=== PATIENT | female | born 1940 | race Caucasian/White ===

== ENCOUNTER 2020-05-07 14:58 | Outpatient (REF) | payer SELFPAY | END 2020-05-07 14:59 | disposition home or self-care (01) | LOC: HO.HAP 14:58 | PROVIDERS: Visit Provider Physician Assistant Medical | DX: Z46.1 Encounter for fitting and adjustment of hearing aid (principal) | CPT/HCPCS: V5014 ==

== ENCOUNTER 2020-08-19 08:18 | Outpatient (REF) | payer MEDICARE, SELFPAY ==
--- NOTE | 2020-08-19 11:48 | MHC.AU.P13 ---
Adult Audiological Evaluation Date of Visit: 08/19/20 Reason for Appointment: Audiological re-evaluation to monitor the status of Ms. Clarke's hearing loss. She has a known bilateral hearing loss and uses hearing aids binaurally. She denies any significant changes to her hearing or medical history. Previous Hearing Test Results: [facility] [place], 08/19/2019- Mild to moderately severe sensorineural hearing loss in the low- and mid-frequencies, rising to normal hearing in the high-frequencies. Medical History: Medical History: Thyroid Disease Hearing Instrument History- Right Ear: Sas Programmer Analyst: [employer] Model: Mobile Bridge B90-R Serial Number: [id number] Battery Size: Rechargeable Repair Warranty: 10/02/2019 Loss and Damage Warranty: 10/02/2019 Dispensed By: [facility] Hearing Instrument History- Left Ear: Sas Programmer Analyst: [employer] Model: Mobile Bridge B90-R Serial Number: [id number] Battery Size: Rechargeable Warranty: 04/23/2021 Loss and Damage Warranty: 10/02/2019 Dispensed By: [facility] Otoscopy: Right Ear: Partially occluded with cerumen Left Ear: Unremarkable Tympanometry: Right Ear: Not performed at today's visit Left Ear: Not performed at today's visit Hearing Evaluation: Transducer(s) Used: Insert Earphones, Bone Conduction Method: Conventional Audiometry Stimuli Used: Pure Tones Right Ear: Description of Hearing: Mild hearing loss at 250 Hz, sloping to a moderate sensorineural hearing loss from 500-2000 Hz, rising to a mild hearing loss at 3000 Hz, and normal hearing from 5352-9650 Hz. Left Ear: Description of Hearing: Mild hearing loss at 250 Hz, sloping to a moderate to moderately severe sensorineural hearing loss from 500-2000 Hz, rising to a mild hearing loss at 3000 Hz, normal hearing at 4096-3108 Hz, and sloping to a mild hearing loss at 8000 Hz. Speech Recognition Threshold (SRT): Method Used: Monitored Live Voice Stimuli Used: Spondee Words Right Ear: 40 dBHL Left Ear: 45 dBHL Word Discrimination: Method: Recorded Lists Word Lists Used: NU-6 Right Ear: 68% at 80 dBHL, 64% at 85 dBHL, 92% at 70 dBHL (Decrease in word understanding as volume increases suggestive of recruitment) Left Ear: 92% at 80 dBHL Comparison: Compared to the most recent evaluation: Hearing is stable. Recommendations: Audiological re-evaluation in one year. Hearing aid maintenance performed today. Recommend using Ear Wax M.D. drops to aid in earwax removal from the right ear canal. Diagnosis: Primary Diagnosis: H90.3 Bilateral Sensorineural Hearing Loss Services Performed: Comprehensive Audiological Evaluation (CPT 54270) Signature: Provider: Navi Vu, CCC-A
== END 2020-08-19 08:19 | disposition home or self-care (01) ==
LOC: HO.SH 08:18
PROVIDERS: Visit Provider Physician Assistant Medical
DX: H90.3 Sensorineural hearing loss, bilateral (principal)
CPT/HCPCS: 92557

== ENCOUNTER 2021-06-08 09:45 | Outpatient (REF) | payer SELFPAY ==
--- NOTE | 2021-06-08 10:00 | MHC.AU.P13 ---
Hearing Instrument Problem-left aid Date of Visit: 06/08/21 Right Ear: Yard Pipe Grader: Phonak Model: Audeo B90-R Serial Number: [id number] Repair Warranty: 10/02/2019 Battery Size: Rechargeable Vessel Scrapper Helper: Size 1xS Type of Dome: Large open Type of Wax Guard: Cerustop Dispensed By: [facility] Date of Fitting: Using late 's aids, which were originally fit to him on 07/11/2016. Transferred to patient on 05/06/2020 Left Ear: Yard Pipe Grader: Phonak Model: Audeo B90-R Serial Number: [id number] Repair Warranty: 04/23/2021 Loss and Damage Warranty: 10/02/2019 Battery Size: Rechargeable Vessel Scrapper Helper: 1xS Type of Dome: Large open Type of Wax Guard: Cerustop Dispensed By: [facility] Date of Fitting: Using late 's aids, which were originally fit to him on 07/11/2016. Transferred to patient on 05/06/2020 Follow-Up Summary: Patient dropped off left aid - not working. Cleaned and replaced wax guard and large open dome - now amplifying clearly. Recommendations: Recommendations: Hearing instrument follow-up or maintenance as needed. Diagnosis Code(s): Primary Diagnosis: H90.3 Bilateral Sensorineural Hearing Loss Signature: Provider: DENNIS Momin-HIS
== END 2021-06-08 09:46 | disposition home or self-care (01) ==
LOC: HO.HAP 09:45
PROVIDERS: Visit Provider Physician Assistant Medical
DX: Z46.1 Encounter for fitting and adjustment of hearing aid (principal); H90.3 Sensorineural hearing loss, bilateral
CPT/HCPCS: 99499

== ENCOUNTER 2021-11-29 10:16 | Outpatient (REF) | payer MEDICARE, SELFPAY ==
--- NOTE | 2021-11-29 16:24 | MHC.AU.AHA ---
Adult Audiological Evaluation Date of Visit: 11/29/21 Reason for Appointment: Audiological re-evaluation to determine if there has been a change in hearing sensitivity. Valeria has a known bilateral, sensorineural hearing loss and uses hearing aids binaurally. She denies any significant changes to her hearing. She noes that she had cataract surgery on her left eye, but otherwise her medical history remains unchanged. Previous Hearing Test Results: [facility] [place], 08/19/2020- In the right ear, mild sloping to moderate SNHL through 2000 Hz, rising to normal hearing 0284-4331 Hz. In the left ear, mild sloping to moderately-severe SNHL through 2000 Hz, rising to normal hearing 2484-4725 Hz, and sloping to a mild hearing loss at 8000 Hz. Medical History: Medical History: Thyroid Disease, Left cataract surgery Medication List: Not provided Hearing Instrument History- Right Ear: Observation Assistant: [employer] Model: MAZeAutoMoneyBack B90-R Serial Number: [id number] Battery Size: Rechargeable Repair Warranty: 10/02/2019 Loss and Damage Warranty: 10/02/2019 Dispensed By: [facility] Hearing Instrument History- Left Ear: Observation Assistant: [employer] Model: MAZeo B90-R Serial Number: [id number] Battery Size: Rechargeable Warranty: 04/23/2021 Loss and Damage Warranty: 10/02/2019 Dispensed By: [facility] Otoscopy: Right Ear: Occluding cerumen removed without incident with a lighted curette. Left Ear: Unremarkable Tympanometry: Tympanometry performed due to: To assess integrity of the middle ear system Right Ear: Normal Middle Ear System (Type A) Left Ear: Normal Middle Ear System (Type A) Hearing Evaluation: Transducer(s) Used: Insert Earphones, Bone Conduction Method: Conventional Audiometry Stimuli Used: Pure Tones Right Ear: Description of Hearing: Mild hearing loss at 250 Hz, sloping to a moderate sensorineural hearing loss 500-2000 Hz, then rising to a mild sensorineural hearing loss at 3000 Hz, and normal hearing 8982-8175 Hz. Left Ear: Description of Hearing: Mild hearing loss at 250 Hz, sloping to a moderate to moderately-severe sensorineural hearing loss 500-2000 Hz, then rising to a mild sensorineural hearing loss at 3000 Hz, and normal hearing 7958-5815 Hz, then sloping to a mild hearing loss at 8000 Hz. Speech Recognition Threshold (SRT): Method Used: Monitored Live Voice Stimuli Used: Spondee Words Right Ear: 30 dBHL Left Ear: 45 dBHL Word Discrimination: Method: Recorded Lists Word Lists Used: NU-6 Right Ear: 80% at 75 dBHL Left Ear: 88% at 80 dBHL Most Comfortable Level (MCL): Right Ear: 75 dBHL Left Ear: 80 dBHL Comparison: Compared to the most recent evaluation: Hearing is stable. Recommendations: Audiological re-evaluation in one year. Hearing aid maintenance performed today. Consistent, daily use of hearing aids recommended. Diagnosis: Primary Diagnosis: H90.3 Bilateral Sensorineural Hearing Loss Secondary Diagnosis: H61.21 Impacted Cerumen, Right Ear Services Performed: Comprehensive Audiological Evaluation (CPT 00284) Tympanometry (CPT 37835) Signature: Provider: Navi Vu, CCC-A
== END 2021-11-29 10:17 | disposition home or self-care (01) ==
LOC: HO.SH 10:16
PROVIDERS: Visit Provider Physician Assistant Medical
DX: Z01.118 Encounter for examination of ears and hearing with other abnormal findings (principal); H90.3 Sensorineural hearing loss, bilateral
CPT/HCPCS: 92557; 92567

== ENCOUNTER 2023-01-24 12:32 | Outpatient (REF) | payer SELFPAY | END 2023-01-24 12:33 | disposition home or self-care (01) | LOC: HO.HAP 12:32 | PROVIDERS: Visit Provider Physician Assistant Medical | DX: Z46.1 Encounter for fitting and adjustment of hearing aid (principal); H90.3 Sensorineural hearing loss, bilateral | CPT/HCPCS: 92700 ==

== ENCOUNTER 2024-02-04 07:53 | Outpatient (REF) | payer SELFPAY ==
--- NOTE | 2024-02-04 08:36 | MHC.AU.HA3 ---
Hearing Instrument Follow-Up- Binaural Date of Visit: 02/04/24 Right Ear: Khari, Model, Color, Serial Number: Phoenix Black B90-R SN [id number] Pancho Mortgage Loan Counselor Repair Warranty: 10/02/2019 Mortgage Loan Counselor Loss and Damage Warranty: 10/02/2019 [facility] Service Plan: n/a Battery Size: Rechargeable Stator Winder/Slim Tube: Size 1xS Earmold/Dome/CShell/SlimTip: Type of Wax Guard: Cerustop Dispensed By: [facility] Date of Fitting: Using late 's aids, which were originally fit to him on 07/11/2016. Transferred to patient on 05/06/2020 Left Ear: Khari, Model, Color, Serial Number: Phoenix Black B90-R SN [id number] Silver Mortgage Loan Counselor Repair Warranty: 04/23/2021 Mortgage Loan Counselor Loss and Damage Warranty: 10/02/2019 [facility] Service Plan: n/a Battery Size: Rechargeable Stator Winder/Slim Tube: 1xS Earmold/Dome/CShell/SlimTip: Type of Wax Guard: Cerustop Dispensed By: [facility] Date of Fitting: Using late 's aids, which were originally fit to him on 07/11/2016. Transferred to patient on 05/06/2020 Follow-Up Summary: Reports left aid is not working. Green in support coordinator but no sound. Found wax guard clogged. Found right wax guard rather blocked up as well. Cleaned aids. Replaced wax guards, tails, and domes. Listening check positive. Improvement reported. Recommendations: Recommendations: Hearing instrument follow-up or maintenance as needed. Diagnosis Code(s): Primary Diagnosis: H90.3 Bilateral Sensorineural Hearing Loss Signature: Provider: Haim Anderson, [facility]
== END 2024-02-04 07:54 | disposition home or self-care (01) ==
LOC: HO.HAP 07:53
PROVIDERS: Visit Provider Physician Assistant Medical
DX: Z46.1 Encounter for fitting and adjustment of hearing aid (principal); H90.3 Sensorineural hearing loss, bilateral
CPT/HCPCS: 92593

== ENCOUNTER 2024-06-24 09:34 | Outpatient (REF) | payer SELFPAY ==
--- NOTE | 2024-06-25 09:22 | MHC.AU.HA3 ---
Hearing Instrument Follow-Up- Binaural Date of Visit: 06/24/24 Right Ear: Make, Model, Color, Serial Number: Phoenix Black B90-R SN [id number] Silver Tool Design Drafter Repair Warranty: 10/02/2019 Tool Design Drafter Loss and Damage Warranty: 10/02/2019 [facility] Service Plan: Battery Size: Rechargeable Horticultural Farmer/Slim Tube: Size 1xS Earmold/Dome/CShell/SlimTip: Type of Wax Guard: Cerustop Dispensed By: [facility] Date of Fitting: Using late 's aids, which were originally fit to him on 07/11/2016. Transferred to patient on 05/06/2020 Left Ear: Khari, Model, Color, Serial Number: Phoenix Black B90-R SN [id number] Silver Tool Design Drafter Repair Warranty: 04/23/2021 Tool Design Drafter Loss and Damage Warranty: 10/02/2019 [facility] Service Plan: Battery Size: Rechargeable Horticultural Farmer/Slim Tube: 1xS Earmold/Dome/CShell/SlimTip: Type of Wax Guard: Cerustop Dispensed By: [facility] Date of Fitting: Using late 's aids, which were originally fit to him on 07/11/2016. Transferred to patient on 05/06/2020 Follow-Up Summary: Right aid dropped off intermittent . Found wax guard clogged. Cleaned aid; replaced dome, wax guard, and tail. Listening check positive. Recommendations: Recommendations: Hearing instrument follow-up or maintenance as needed. Diagnosis Code(s): Primary Diagnosis: H90.3 Bilateral Sensorineural Hearing Loss Signature: Provider: Haim Anderson, [facility]
== END 2024-06-24 09:35 | disposition home or self-care (01) ==
LOC: HO.HAP 09:34
PROVIDERS: Visit Provider Physician Assistant Medical
DX: Z13.89 Encounter for screening for other disorder (principal)

== ENCOUNTER 2024-06-25 11:05 | Outpatient (REF) | payer SELFPAY ==
--- OUTSIDE RECORDS SUMMARY | 2024-07-01 17:59 | XMS_ITS | Continuity of Care Document ---
Author Organization [facility] Address [address] [place] [phone] Assessment No assessment recorded. Plan of Treatment Reminders Order Date Submit Date Provider Last Modified By Organization Details Last Modified Time Details Appointments None record ed. Lab None record ed. Referral None record ed. Procedures None record ed. Surgeries None record ed. Imaging None record ed. Medication Orders None record ed. Patient TargetsNo targets recorded. Patient InstructionsNo instructions recorded. Reason for Referral None Reported. Medical Equipment None Reported. Medications Name Sig Start Date Stop Date Status Note LastModified by Organization Details LastModified Time Levoxyl 88 mcg tablet TAKE 1 TABLET ONCE DAILY 5 DAYS A WEEK active Not Available Not Available No t Available atorvastatin 10 mg tablet TAKE 1 TABLET BY MOUTH EVERY DAY active Not Available Not Available No t Available amlodipine 2.5 mg tablet TAKE 1 TABLET BY MOUTH EVERY DAY active Not Available Not Available No t Available Vitals None Recorded Social History None recorded. Functional Status None recorded. Mental Status None recorded. Family History Nothing Reported. Medical History No medical history recorded. Gynecological HistoryNo gynecological history recorded. Obstetrics History GPAL:G 0 P 0 0 0 0 Past Encounters Encounter ID Performer Location Encounter Start Date Encounter Closed Date Diagnosis/Indication Diagnosis SNOMED-CT Code Diagnosis ICD10 Code [id number] [facility] [address] [address] 06/14/2024 08:54:16 06/18/2024 19:12:11 Left without being seen [id number] 9102 Z53.21 Health Concerns Section Related Observation LastModified by Organization Detai ls LastModified Time None Recorded Concern Status LastModified by Organization Details LastModified Time None Recorded Payers Encounter Date Sequence Insurance Name Policy Number Policy Hyatt Covered Member ID Hyatt Member ID Guarantor Name 06/14/2024 1 MEDICARE B-[place]: [employer] Valeria Theroux [id number] 1 Valeria Theroux 06/14/2024 2 CORI [id number] Valeria Vail Theroux [id number] Valeria Theroux OBGyn Episode No OBEpisode recorded.
--- OUTSIDE RECORDS SUMMARY | 2024-07-01 17:59 | XMS_ITS | Data Portability ---
Author Organization [facility] [address] Address [address] [place] [phone] Assessment No assessment recorded. Plan of Treatment [...] Diagnosis/Indication Diagnosis SNOMED-CT Code Diagnosis ICD10 Code [id number] [address] [address] 09/10/2018 08:08:00 09/10/2018 08:40:14 [id number] [facility] [address] [address] 06/14/2024 08:54:16 06/18/2024 19:12:11 Left without being seen [id number] 9102 Z53.21 Health Concerns Section Related Observation LastModified by Organization Detai ls LastModified Time None Recorded Concern Status LastModified by Organization Details LastModified Time None Recorded Advance Directives Directive None Recorded Payers Encounter Date Sequence Insurance Name Policy Number Policy Hyatt Covered Member ID Hyatt Member ID Guarantor Name 09/10/2018 1 MEDICARE B-[place]: [facility] GOVERNMENT SERVICES Valeria Vail Theroux [id number] Valeria Theroux 09/10/2018 [address] [facility]-[place]: MEDEX (MEDICARE SUPPLEMENT) [id number] Valeria Vail Theroux [id number] Valeria Theroux 06/14/2024 1 MEDICARE B-[place]: [employer]ATIONAL [employer] Valeria Theroux [id number] 1 Valeria Theroux 06/14/2024 2 CORI [id number] Valeria Vail Theroux [id number] 06 Valeria Theroux OBGyn Episode No OBEpisode recorded.
== END 2024-06-25 11:06 | disposition home or self-care (01) ==
LOC: HO.HAP 11:05
PROVIDERS: Visit Provider Physician Assistant Medical
DX: Z46.1 Encounter for fitting and adjustment of hearing aid (principal); H90.3 Sensorineural hearing loss, bilateral; H61.21 Impacted cerumen, right ear
CPT/HCPCS: 92593

== ENCOUNTER 2024-07-11 08:14 | Outpatient (REF) | payer SELFPAY ==
--- OUTSIDE RECORDS SUMMARY | 2024-07-11 08:17 | XMS_ITS | Continuity of Care Document ---
Author Organization [facility] Address [address] [place] [phone] Assessment No assessment recorded. Plan of Treatment [...] Diagnosis/Indication Diagnosis SNOMED-CT Code Diagnosis ICD10 Code [id number] [facility] [address] [address] 06/14/2024 08:54:16 06/18/2024 19:12:11 Left without being seen [id number] 9102 Z53.21 Health Concerns Section Related Observation LastModified by Organization Detai ls LastModified Time None Recorded Concern Status LastModified by Organization Details LastModified Time None Recorded Payers Encounter Date Sequence Insurance Name Policy Number Policy Hyatt Covered Member ID Hyatt Member ID Guarantor Name 06/14/2024 2 CORI [id number] Valeria Vail Theroux [id number] Valeria Theroux 06/14/2024 1 MEDICARE B-[place]: [facility] SERVICES Valeria Theroux [id number] 1 Valeria Theroux OBGyn Episode No OBEpisode recorded.
--- NOTE | 2024-07-11 14:48 | MHC.AU.HA3 ---
Hearing Instrument Follow-Up- Binaural Date of Visit: 07/11/24 Right Ear: Khari, Model, Color, Serial Number: Phoenix Black B90-R SN [id number] Silver Fueler Repair Warranty: 10/02/2019 [employer] Loss and Damage Warranty: 10/02/2019 [facility] Service Plan: Battery Size: Rechargeable Firing Pin Gauger/Slim Tube: Size 1xS Type of Wax Guard: Cerustop Dispensed By: [facility] Date of Fitting: Using late 's aids, which were originally fit to him on 07/11/2016. Transferred to patient on 05/06/2020 Left Ear: Khari, Model, Color, Serial Number: Phoenix Black B90-R SN [id number] [employer]anch[employer] Fueler Repair Warranty: 04/23/2021 Fueler Loss and Damage Warranty: 10/02/2019 Battery Size: Rechargeable Firing Pin Gauger/Slim Tube: 1xS Earmold/Dome/CShell/SlimTip: Type of Wax Guard: Cerustop Dispensed By: [facility] Date of Fitting: Using late 's aids, which were originally fit to him on 07/11/2016. Transferred to patient on 05/06/2020 Follow-Up Summary: Valeria was scheduled for [facility], she had called recently with a question of hearing aids needing an update and we thought she meant firmware update. Valeria reports interest in new technology. She reports a friends recently got some new hearing aids and has been very happy with them. Valeria is currently wearing hearing aids from her late that are from 2016. We discussed the benefits of new technology, performance levels, and prices. Discussed total cost for hearing aids including consult, rechargeable, and optional service plan. Valeria would stick with rechargeable and is considering high performance level, no service plan. Advised of need for updated hearing test. She will contact PCP for referral. HAE to be completed and consult fee paid at that time to proceed with order. Recommendations: Recommendations: Request referral for evaluation from PCP. Diagnosis Code(s): Primary Diagnosis: H90.3 Bilateral Sensorineural Hearing Loss Signature: Provider: Haim Anderson, [facility]
== END 2024-07-11 08:15 | disposition home or self-care (01) ==
LOC: HO.HAP 08:14
PROVIDERS: Visit Provider Physician Assistant Medical
DX: Z13.89 Encounter for screening for other disorder (principal)

== ENCOUNTER 2024-07-31 12:38 | Outpatient (REF) | payer MEDICARE, SELFPAY ==
--- OUTSIDE RECORDS SUMMARY | 2024-07-31 13:48 | XMS_ITS | Continuity of Care Document ---
Author Organization [facility] Address [address] [place] [phone] Assessment No assessment recorded. Plan of Treatment [...] Diagnosis/Indication Diagnosis SNOMED-CT Code Diagnosis ICD10 Code Diagnosis Note [id number] [facility] [address] [address] 06/14/2024 08:54:16 06/18/2024 19:12:11 Left without being seen [id number] 9102 Z53.21 Health Concerns Section Related Observation LastModified by Organization Detai ls LastModified Time None Recorded Concern Status LastModified by Organization Details LastModified Time None Recorded Payers Encounter Date Sequence Insurance Name Policy Number Policy Hyatt Covered Member ID Hyatt Member ID Guarantor Name 06/14/2024 2 CORI [id number] Valeria M Theroux [id number] Valeria Theroux 06/14/2024 1 MEDICARE B-MA: [facility] GOVERNMENT SERVICES Valeria Theroux [id number] 1 Valeria Theroux OBGyn Episode No OBEpisode recorded.
== END 2024-07-31 12:39 | disposition home or self-care (01) ==
LOC: HO.SH 12:38
PROVIDERS: Visit Provider Nurse Practitioner
DX: Z01.118 Encounter for examination of ears and hearing with other abnormal findings (principal); H90.3 Sensorineural hearing loss, bilateral
CPT/HCPCS: 92552; 92556

== ENCOUNTER 2024-07-31 14:20 | Outpatient (REF) | payer SELFPAY ==
--- OUTSIDE RECORDS SUMMARY | 2024-07-31 16:34 | XMS_ITS | Data Portability ---
Author Organization [facility] [address] Address [address] [place] [phone] Assessment No assessment recorded. Plan of Treatment [...] SNOMED-CT Code Diagnosis ICD10 Code Diagnosis Note [id number] [address] [address] 09/10/2018 08:08:00 09/10/2018 08:40:14 [id number] [facility] [address] [address] 06/14/2024 08:54:16 06/18/2024 19:12:11 Left without being seen [id number] 9102 Z53.21 Health Concerns Section Related Observation LastModified by Organization Detai ls LastModified Time None Recorded Concern Status LastModified by Organization Details LastModified Time None Recorded Advance Directives Directive None Recorded Payers Encounter Date Sequence Insurance Name Policy Number Policy Hyatt Covered Member ID Hyatt Member ID Guarantor Name 09/10/2018 1 MEDICARE B-[place]: [facility] GOVERNMENT SERVICES Valeria Vail Theroux [id number] Valeria Theroux 09/10/2018 1 [facility]-[place]: MEDEX (MEDICARE SUPPLEMENT) [id number] Valeria Vail Theroux [id number] Valeria Theroux 06/14/2024 2 [facility]- [id number] Valeria M Theroux [id number] Valeria Theroux 06/14/[address] MED[address]ARE B-MA: [facility] GOVERNMENT SERVICES Valeria Theroux [id number] 1 Valeria Theroux OBGyn Episode No OBEpisode recorded.
--- NOTE | 2024-08-01 11:12 | MHC.AU.HA1 ---
Hearing Aid Evaluation Date of Visit: 07/31/24 Historical Information: Description of Hearing: Moderate sensorineural hearing loss rising to normal bilaterally Current personal amplification information, if applicable: Phonak Audeo B90 R Summary: Valeria was recently seen 07/11 with an interest in new technology. We thoroughly discussed options at that time. An updated hearing evaluation was needed to proceed which she returned for today. We finalized selection of high performance level rechargeable LATIA hearing aids. Hearing Aid Prescription: Based on the individual?s shared listening needs, communication environments, dexterity, desire for connectivity, and personal preferences, the following prescription for amplification has been made: Right ear: Make, Model, Color: Phonak Audeo I 90 sphere Silver Battery Size: Rechargeable Animal Caretaker Supervisor/Slim Tube: 1M Type of Earmold/Dome/CShell/SlimTip: Med vented Left ear: Left ear prescription to be same as Right Hearing Aid above: Make, Model, Color: Phonak Audeo I 90 sphere silver Battery Size: Rechargeable Animal Caretaker Supervisor/Slim Tube: 1M Type of Earmold/Dome/CShell/SlimTip: Med vented Plan of Care: Patient wishes to purchase hearing aids as prescribed Action Taken/Action Needed: Hearing Instrument Fitting to be scheduled when materials arrive Primary Diagnosis: H90.3 Bilateral Sensorineural Hearing Loss Signature: Provider: Haim Anderson, [facility]
== END 2024-07-31 14:21 | disposition home or self-care (01) ==
LOC: HO.HAP 14:20
PROVIDERS: Visit Provider Physician Assistant Medical
DX: Z46.1 Encounter for fitting and adjustment of hearing aid (principal); H90.3 Sensorineural hearing loss, bilateral
CPT/HCPCS: 92590

== ENCOUNTER 2024-08-22 08:52 | Outpatient (REF) | payer SELFPAY ==
--- OUTSIDE RECORDS SUMMARY | 2024-08-22 09:09 | XMS_ITS | Clinical Summary ---
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; COMMENT: for Hurthle cell adenoma Medical History Medical History Date Comments Allergic rhinitis DX:Allergic rh initis History of malignant melanoma DX :History of malignant melanoma Hypothyroidism DX:Hypothyroidis m Osteoporosis DX:Osteoporosis Family History Medical History Relation Name Comments Other: Cardiovascular Disease Father Other: Diabetes Mellitus, Type 2 Father Relation Name Status Comments Father Social History Tobacco Use Types Packs/Day Years Used Date Smoking Tobacco: Never Smokeless Tobacco: Never Alcohol Use Standard Drinks/Week Comments Yes 0 (1 standard drink = 0.6 oz pur e alcohol) Sex and Gender Information Value Date Recorded Sex Assigned at Not on file Gender Identity Not on file Sexual Orientation Not on file Obstetrics History Last Filed Vital Signs Vital Sign Reading Time Taken Comments Blood Pressure 136/72 02/22/2023 8:51 AM EDT Sit ting R Arm Pulse 77 02/29/2024 9:08 AM EDT Temperature - - Respiratory Rate - - Oxygen Saturation - - Inhaled Oxygen Concentration - - Weight 71.2 kg (157 lb) 02/29/2024 9:08 AM EDT Height 167.6 cm (5' 6 ) 02/29/2024 9:08 AM EDT Body Mass Index 25.34 02/29/2024 9:08 AM EDT Plan of Treatment Upcoming Encounters Date Type Department Care Team (Late st Contact Info) Description 03/17/2025 8:50 AM EDT Office Visit [facility] [address] [place] [address] Kurtis Justice MD [address] [place] [address] DRIVE [address] [place] [address] Health Maintenance Due Date Last Done Comments DTaP,Tdap,and Td Vaccines (1 - Tdap) 1957 Zoster Vaccines (1 of 2) 1988 RSV Immunization Patients 60+ Years Old (1 - 1-dose 75+ series) 2013 Pneumococcal Vaccine: 65+ Years (2 of 2 - PCV) 12/09/2020 12/10/2019 Cholesterol Screening (Lipid Panel) 04/19/2023 Depression Screening 04/19/2023 Falls Risk Assessment 04/19/2023 Osteoporosis Screening (Bone Density Screening) 04/19/2023 Social Influencers of Health Screening 04/19/2023 Hypertension/CHF/CAD Annual BMP Blood Test 04/24/2023 Medicare Annual Wellness Visit 12/20/2023 12/19/2022 COVID-19 Vaccine ( - season) 2024 Influenza Vaccine (#1) 2024 2, 04/08/2021, 04/16/2020, Additional history exists HIB Vaccines Aged Out No longer eligi ble based on patient's age to complete this topic HPV Vaccines Aged Out No longer eligi ble based on patient's age to complete this topic Hepatitis A Vaccines Aged Out No long er eligible based on patient's age to complete this topic Hepatitis B Vaccines Aged Out No long er eligible based on patient's age to complete this topic IPV Vaccines Aged Out No longer eligi ble based on patient's age to complete this topic MMR Vaccines Aged Out No longer eligi ble based on patient's age to complete this topic Meningococcal ACWY Vaccine Aged Out N o longer eligible based on patient's age to complete this topic RSV Immunization Patients Under 20 months Aged Out No longer eligible based on patient's age to complete this topic Varicella Vaccines Aged Out No longer eligible based on patient's age to complete this topic Care Teams Natural Developer Relationship Specialty Start Date End Date Julian Barnett NP [facility] [address] [facility] [place] [address] PCP - General 02/29/24
--- OUTSIDE RECORDS SUMMARY | 2024-08-22 09:09 | XMS_ITS | Clinical Summary ---
Author Organization [facility] Address [address] [place] [address] Care Team Providers Care Yarder Engineer Name Role Phone Unavailable Primary Care Provider Unavailabl e Social History Tobacco Use Types Packs/Day Years Used Date Smoking Tobacco: Never Assessed Comments Unknown Sex and Gender Information Value Date Recorded Sex Assigned at Not on file Legal Sex Female 5:08 AM EDT Gender Identity Not on file Sexual Orientation Not on file Plan of Treatment Health Maintenance Due Date Last Done Comments DTaP/Tdap/Td (1 - Tdap) 1956 Pneumococcal 50+ years (1 of 1 - PCV) 1988 Zoster (Shingrix) (1 of 2) 1988 Bone Density 2003 RSV (1 - 1-dose 75+ series) 2013 COVID-19 Vaccine (2023-2 5 season) 2024 Influenza (#1) 2024 HPV Vaccine Aged Out No longer eligi ble based on patient's age to complete this topic Hep A Aged Out No longer eligi ble based on patient's age to complete this topic Hep B Aged Out No longer eligi ble based on patient's age to complete this topic Hib Aged Out No longer eligi ble based on patient's age to complete this topic Mammogram/Breast Imaging Discontinued Meningococcal ACWY Aged Out No longer eligible based on patient's age to complete this topic Pap Smear Discontinued Zoster (Zostavax) Discontinued Insurance MEDICARE PART B [facility] FEE FOR SERVICE HMO
--- OUTSIDE RECORDS SUMMARY | 2024-08-22 09:09 | XMS_ITS | Data Portability ---
Author Organization [facility] [address] Address [address] [place] [id number] Assessment No assessment recorded. Plan of Treatment [...] SNOMED-CT Code Diagnosis ICD10 Code Diagnosis Note [id number] [address] 09/10/2018 08:08:00 09/10/2018 08:40:14 [id number] [facility] [address] [address] 06/14/2024 08:54:16 06/18/2024 19:12:11 Left without being seen [id number] Z53.21 Health Concerns Section Related Observation LastModified by Organization Detai ls LastModified Time None Recorded Concern Status LastModified by Organization Details LastModified Time None Recorded Advance Directives Directive None Recorded Payers Encounter Date Sequence Insurance Name Policy Number Policy Hyatt Covered Member ID Hyatt Member ID Guarantor Name 09/10/2018 1 [place] [facility] Valeria Vail Theroux [id number] Valeria Theroux 09/10/2018 1 [facility] [id number] Valeria Vail Theroux [id number] Valeria Theroux 06/14/2024 2 [facility]- [id number] Valeria M Theroux [id number] Valeria Theroux 06/14/2024 1 [place] [facility] Valeria Theroux [id number] 1 Valeria Theroux OBGyn Episode No OBEpisode recorded.
--- NOTE | 2024-08-22 13:49 | MHC.AU.HA2 ---
Hearing Instrument Fitting- Adult- Binaural Date of Visit: 08/22/24 Hearing Instruments Dispensed: Right Ear: Make, Model, Color, Serial Number: Phonak Audeo I 90 deisy Pimentel [id number] Cereal Maker Repair Warranty: 09/03/2027 Cereal Maker Loss and Damage Warranty: 09/03/2027 [facility] Service Plan: n/a Battery Size: Rechargeable Personnel Supervisor/Slim Tube: 1M Earmold/Dome/CShell/SlimTip: sm vented Type of Wax Guard: Cerustop Left Ear: Make, Model, Color, Serial Number: Phonak Audeo I 90 deisy pimentel [id number] Cereal Maker Repair Warranty: 09/03/2027 Cereal Maker Loss and Damage Warranty: 09/03/2027 [facility] Service Plan: n/a Battery Size: Rechargeable Personnel Supervisor/Slim Tube: 1M Earmold/Dome/CShell/SlimTip: sm vented Type of Wax Guard: Cerustop Summary of Fitting: Fit with and oriented to binaural Phonak Audeo I 90 Sphere hearing aids. Verified to DSL adult 5 targets. Reduced lows and increased highs slightly due to reverse slope loss. Good subjective comfort and benefit reported. Longtime hearing aid user. Reviewed use and care, maintenance, charging. Connected with phone and tested streaming. Recommendations: Recommendations: Hearing instrument care and maintenance were discussed and practiced. The instrument(s) were paired to the patient's smartphone. A hearing instrument follow-up was scheduled. Diagnosis Code(s): Primary Diagnosis: H90.3 Bilateral Sensorineural Hearing Loss Signature: Provider: Haim Anderson, [facility]
== END 2024-08-22 08:53 | disposition home or self-care (01) ==
LOC: HO.HAP 08:52
PROVIDERS: Visit Provider Physician Assistant Medical
DX: Z46.1 Encounter for fitting and adjustment of hearing aid (principal); H90.3 Sensorineural hearing loss, bilateral
CPT/HCPCS: V5262; V5299

== ENCOUNTER 2024-09-12 08:19 | Outpatient (REF) | payer SELFPAY ==
--- OUTSIDE RECORDS SUMMARY | 2024-09-12 08:29 | XMS_ITS | Clinical Summary ---
Author Organization [facility] Address [address] [place] [address] Care Team Providers Care Fig Bar Machine Operator Name Role Phone Unavailable Primary Care Provider [...] Zoster (Zostavax) Discontinued Insurance MEDICARE PART B [facility] FEE FOR SERVICE HMO
--- OUTSIDE RECORDS SUMMARY | 2024-09-12 08:29 | XMS_ITS | Clinical Summary ---
Author Organization [facility] ity Address [address] [place] [address] Care Team Providers Care Rehanger Name Role Phone Ericka Julian NP Primary Care Provider [phone] Surgical History Surgery Date Site/Laterality Comments OTHER SURGICAL HISTORY PROCEDURE: [place] TONSILLECTOMY & ADENOIDECTOMY AGE 10/> OTHER SURGICAL [...] drink = 0.6 oz pur e alcohol) Comments Unknown Sex and Gender Information Value Date Recorded Sex Assigned at Not on file Legal Sex Female 10:24 PM EDT Gender Identity Not on file Sexual [...] Description 03/17/2025 8:50 AM EDT Office Visit [facility] [address] [place] [address] Kurtis Justice MD [address] [place] [address] DRIVE [address] [place] [address] Health Maintenance Due Date Last Done Comments DTaP,Tdap,and Td Vaccines (1 - Tdap) 1957 Zoster Vaccines (1 of 2) 1988 RSV Immunization Patients 60+ Years Old (1 - 1-dose 75+ series) 2013 Pneumococcal Vaccine: 50+ Years (2 of 2 - PCV) 12/09/2020 [...] patient's age to complete this topic Meningococcal B Vacine Aged Out No lo nger eligible based on patient's age to complete this topic RSV Immunization Patients Under 20 months Aged Out No longer eligible based on patient's age to complete this topic Varicella Vaccines Aged Out No longer eligible based on patient's age to complete this topic Insurance MEDICARE Care Teams Rehanger Relationship Specialty Start Date End Date Julian Barnett NP [facility] [address] [place] [address] PCP - General 02/29/24
--- OUTSIDE RECORDS SUMMARY | 2024-09-12 08:29 | XMS_ITS | Data Portability ---
Author Organization [facility] [address] Address [address] [place] [phone] Assessment No assessment recorded. Plan of Treatment [...] SNOMED-CT Code Diagnosis ICD10 Code Diagnosis Note [id number] [address] 09/10/2018 08:08:00 09/10/2018 08:40:14 [id number] [facility] [address] [address] 06/14/2024 08:54:16 06/18/2024 19:12:11 Left without being seen [id number] 9102 Z53.21 Health Concerns Section Related Observation LastModified by Organization Detai ls LastModified Time None Recorded Concern Status LastModified by Organization Details LastModified Time None Recorded Advance Directives Directive None Recorded Payers Encounter Date Sequence Insurance Name Policy Number Policy Hyatt Covered Member ID Hyatt Member ID Guarantor Name 09/10/2018 1 MEDICARE [place]: [facility] Valeria Vail Theroux [id number] Valeria Theroux 09/10/[address] [facility]) [id number] Valeria Vail Theroux [id number] Valeria Theroux 06/14/[address] [facility]- [id number] Valeria M Theroux [id number] 06 Valeria Theroux 06/14/2024 1 [place] [facility] Valeria Theroux [id number] 1 Valeria Theroux OBGyn Episode No OBEpisode recorded.
--- NOTE | 2024-09-12 09:50 | MHC.AU.HA3 ---
Hearing Instrument Follow-Up- Binaural Date of Visit: 09/12/24 Right Ear: Khari, Model, Color, Serial Number: Phoenix Antonioo Lisa 90 deisy Pimentel [id number] Programming Equipment Operator Repair Warranty: 09/03/2027 Programming Equipment Operator Loss and Damage Warranty: 09/03/2027 [facility] Service Plan: n/a Battery Size: Rechargeable Aligner/Slim Tube: 1M Earmold/Dome/CShell/SlimTip:sm vented Type of Wax Guard: Cerustop Dispensed By: [facility] Date of Fitting: Using late 's aids, which were originally fit to him on 07/11/2016. Transferred to patient on 05/06/2020 Left Ear: Khari, Model, Color, Serial Number: Phoenix Antonioo I Jeb pimentel [id number] Programming Equipment Operator Repair Warranty: 09/03/2027 Programming Equipment Operator Loss and Damage Warranty: 09/03/2027 [facility] Service Plan: n/a Battery Size: Rechargeable Aligner/Slim Tube: 1M Earmold/Dome/CShell/SlimTip: sm vented Type of Wax Guard: Cerustop Dispensed By: [facility] Date of Fitting: Using late 's aids, which were originally fit to him on 07/11/2016. Transferred to patient on 05/06/2020 Follow-Up Summary: Seen for follow up. Reports good satisfaction with the hearing aids. Enjoying the connection to her phone as well. Practiced changing domes and wax guards today. Follow up as needed. Recommendations: Recommendations: Hearing instrument follow-up or maintenance as needed. Diagnosis Code(s): Primary Diagnosis: H90.3 Bilateral Sensorineural Hearing Loss Signature: Provider: Haim Anderson, [facility]
== END 2024-09-12 08:20 | disposition home or self-care (01) ==
LOC: HO.HAP 08:19
PROVIDERS: Visit Provider Physician Assistant Medical
DX: Z13.89 Encounter for screening for other disorder (principal)